=== PATIENT | female | born 1965 | race Caucasian/White ===

== ENCOUNTER 2019-03-01 21:07 | Inpatient (IN) | payer BC ==
[2019-03-02 00:07] VITALS: BMI 19.4
--- NOTE | 2019-03-02 07:12 | HP ---
CIWA Score Nausea/Vomitin (vomiting x 3) Muscle Tremors: 4-Moderate,w/Arms Extend Anxiety: 4-Mod. Anxious/Guarded Agitation: 4-Moderately Restless Paroxysmal Sweats: 2 Orientation: 0-Oriented Tacttile Disturbances: 0-None Auditory Disturbances: 0-None Visual Disturbances: 0-None Headache: 3-Moderate CIWA-Ar Total Score: 20 - Admission Criteria OASAS Guidelines: Admission for Medically Managed Detox: Requires at least one of the followin. CIWA greater than 12 2. Seizures within the past 24 hours 3. Delirium tremens within the past 24 hours 4. Hallucinations within the past 24 hours 5. Acute intervention needed for co occurring medical disorder 6. Acute intervention needed for co occurring psychiatric disorder 7. Severe withdrawal that cannot be handled at a lower level of care (continued vomiting, continued diarrhea, abnormal vital signs) requiring intravenous medication and/or fluids 8. Admission ROS [facility] - [facility] Chief Complaint: Alcohol withdrawal symptoms Allergies/Adverse Reactions: Allergies Allergy/AdvReac Type Severity Reaction Status Date / Time No Known Allergies Allergy Verified 03/01/19 23:57 History of Present Illness: 53 years old female with 3 years of excessive alcohol dependence is seeking admission to detox. This is her first admission to [facility] and first inpatient detoxification. She denies past medical history and report suicide attempt in 2007. Patient denies suicidal ideation at this time. Exam Limitations: No Limitations - Ebola screening Have you traveled outside of the country in the last 21 days: No (N) Have you had contact with anyone from an Ebola affected area: No Do you have a fever: No - Review of Systems Constitutional: Chills, Loss of Appetite, Malaise, Changes in sleep EENT: reports: No Symptoms Reported Respiratory: reports: No Symptoms reported Cardiac: reports: No Symptoms Reported GI: reports: No Symptoms Reported : reports: No Symptoms Reported Musculoskeletal: reports: No Symptoms Reported, Back Pain Integumentary: reports: Dryness, Flushing Neuro: reports: Headache, Tremors Hematology: reports: No Symptoms Reported Psychiatric: reports: Anxious Other Systems: Reviewed and Negative Patient History - Patient Medical History Hx Anemia: No Hx Asthma: No Hx Chronic Obstructive Pulmonary Disease (COPD): No Hx Cancer: No Hx Cardiac Disorders: No Hx Congestive Heart Failure: No Hx Hypertension: No Hx Hypercholesterolemia: No Hx Pacemaker: No HX Cerebrovascular Accident: No Hx Seizures: No Hx Dementia: No Hx Diabetes: No Hx Gastrointestinal Disorders: No Hx Liver Disease: No Hx Genitourinary Disorders: No Hx Sexually Transmitted Disorders: No Hx Renal Disease (ESRD): No Hx Thyroid Disease: No Hx Human Immunodeficiency Virus (HIV): No Hx Hepatitis C: No Hx Depression: No Hx Suicide Attempt: No Hx Bipolar Disorder: No Hx Schizophrenia: No - Patient Surgical History Past Surgical History: No - PPD History Previous Implant?: Yes Documented Results: Negative w/o proof Implanted On Prior R Admission?: No - Reproductive History Patient is a Female of Child Bearing Age (11 -55 yrs old): Yes LMP comment: Menopausal Patient : No - Smoking Cessation Smoking history: Unknown if ever smoked - Substance & Tx. History Hx Alcohol Use: Yes Hx Substance Use: No Substance Use Type: Tranquilizers Hx Substance Use Treatment: No - Substances abused Alcohol Substance route: Oral Frequency: Daily Amount used: 1 to 2 bottles of white wine Age of first use: 19 Date of last use: 03/01/19 Family Disease History - Family Disease History Family History: Denies Admission Physical Exam [facility] - Vital Signs Vital Signs: Vital Signs - 24 hr 03/01/19 23:56 Temperature 98.8 F Pulse Rate 102 H Respiratory 16 Rate Blood Pressure 139/94 - Physical General Appearance: Yes: Moderate Distress, Tremorous, Irritable, Anxious HEENTM: Yes: Within Normal Limits, Pale Conjunctivae R, Nasal Congestion Respiratory: Yes: Lungs Clear, Normal Breath Sounds, No Respiratory Distress Neck: Yes: Supple Breast: Yes: Breast Exam Deferred Cleared for Admission [facility] - Detox or Rehab [facility] Level of Care: Medically Managed Detox Regimen/Protocol: Librium Breathalyzer - Breathalyzer Breathalyzer: 0 Urine Drug Screen - Test Device Lot number: [id number] Expiration date: 10/28/20 - Control Is test valid?: Yes - Results Drug screen NEGATIVE: No Urine drug screen results: BZO-Benzodiazepines Inpatient Rehab Admission - Rehab Decision to Admit Inpatient rehab admission?: No
[2019-03-02] MEDS ORDERED: MAGNESIUM CITRATE 300 ML BOTTLE PO PRN (07:15)
[2019-03-02] MEDS ORDERED: ACETAMINOPHEN 325 MG TABLET (FP) PO PRN ×2 (07:15)
[2019-03-02] MEDS ORDERED: MELATONIN 5 MG TABLETS PO PRN (07:15)
[2019-03-02] MEDS ORDERED: IBUPROFEN 400 MG TABLET (FP) PO PRN (07:15)
[2019-03-02] MEDS ORDERED: MENTHOL/PHENOL 1 EACH UD MM PRN (07:15)
[2019-03-02] MEDS ORDERED: BISMUTH SUBSALICYLATE 262 MG/15 ML BTL PO PRN (07:15)
[2019-03-02] MEDS ORDERED: hydrOXYzine PAMOATE 25 MG CAPSULE (FP) PO PRN (07:15)
[2019-03-02] MEDS ORDERED: diazePAM 5 MG TABLET PO PRN (07:15)
[2019-03-02] MEDS ORDERED: MAGNESIUM HYDROX 2400MG/30ML ORAL SUSPENSION 30 ML CUP PO PRN (07:15)
[2019-03-02] MEDS ORDERED: MAG HYDROX/AL HYDROX/SIMETH 30 ML UNIT-DOSE CUP PO PRN (07:15)
[2019-03-02] MEDS ORDERED: METHOCARBAMOL 500 MG TABLET PO PRN (07:15)
[2019-03-02] MEDS: diazePAM 5 MG TABLET PO SCH ×3 (09:19→22:24)
[2019-03-02] MEDS: PRENATAL VITAMINS W/ FOLIC ACID TABLET (FP) PO SCH (09:26)
--- NOTE | 2019-03-02 14:18 | CONSULT ---
[facility] Psychiatric Consult - Data Date of interview: 03/02/19 Admission source: [facility] Identifying data: First admission to [facility] for this 53 y/o female self-referred for detoxification (alcohol). Interviewed at [address] [place] [id number]. Patient is , no children, domiciled and currently employed as a vetenarian. Substance Abuse History: Substances abused : Alcohol. Substance route: Oral. Frequency: Daily. Amount used: 1 to 2 bottles of white wine. Age of first use : 19. Date of last use: 03/01/19. Has maintained sobriety for 8 years. Relapse triggered by medical ilness of and his admission to assisted with severe physical disability. Medical History: Patient endorses good general health. History of two miscarriages. Psychiatric History: No reported history of psychiatric hospitalizations. However, Ms Moreno admits to chronic anxiety + dysphoria which has led to escalation of alcohol consumption and increasing difficulty to maintain focus on ADL's (activities of daily living). She is currently under the care of a private psychiatrist for medication management (escitalopram and naltrexone). Patient indicates tht she is not fully invested in OPD care. She aknowledges her skepticism about the therapeutic virtues of psychopharmacotherapy and, consequently, her adherence has been sub-optimal. Patient endorses one suicide attempt via overdose with pills (2007). Physical/Sexual Abuse/Trauma History: Denies history of abuse. Additional Comment: Urine drug screen results: BZO-Benzodiazepines. Noted. Mental Status Exam - Mental Status Exam Alert and Oriented to: Time, Place, Person Cognitive Function: Good Patient Appearance: Well Groomed Mood: Withdrawn, Hopeful Affect: Appropriate, Normal Range Patient Behavior: Fatigued, Appropriate (well-mannered), Cooperative Speech Pattern: Clear, Appropriate (articulate) Voice Loudness: Normal Thought Process: Intact, Goal Oriented Thought Disorder: Not Present Hallucinations: Denies Suicidal Ideation: Denies Homicidal Ideation: Denies Insight/Judgement: Fair Sleep: Fair Muscle strength/Tone: Normal Gait/Station: Normal Psychiatric Findings - Problem List ([place] 1, 2,3) (1) Alcohol dependence Current Visit: Yes Status: Chronic (2) Alcohol-induced mood disorder Current Visit: Yes Status: Suspected (3) Mood disorder Current Visit: Yes Status: Chronic - Initial Treatment Plan Initial Treatment Plan: Interviewed in the presence of medical students ( authorized by patient via verbal consent). Psychoeducation. Sleep hygiene. Support. Detoxification. Motivational counseling provided in session. Emphasis placed on benefits of MAT initiatives for relapse prevention + psychotherapy + compliance with medications (SSRI + naltrexone). Educated about the advantages of Vivitrol. Observation.
--- NOTE | 2019-03-02 16:49 | PN ---
S CIWA - CIWA Score Nausea/Vomitin-No Nausea/No Vomiting Muscle Tremors: 3 Anxiety: 2 Agitation: 2 Paroxysmal Sweats: No Perspiration Orientation: 0-Oriented Tacttile Disturbances: 2-Mild Itch/Numbness/Burn Auditory Disturbances: 0-None Visual Disturbances: 2-Mild Sensitivity Headache: 4-Moderately Severe CIWA-Ar Total Score: 15 S Progress Note (SOAP) Subjective: Anxious, H/A, Tremors. Objective: PATIENT A & O X 3, OBSERVED AMBULATING ON UNIT UNASSISTED. IN NO ACUTE DISTRESS. 03/02/19 16:50 Vital Signs Temperature 98.1 F 03/02/19 13:45 Pulse Rate 110 H 03/02/19 13:45 Respiratory Rate 16 03/02/19 13:45 Blood Pressure 119/80 03/02/19 13:45 O2 Sat by Pulse Oximetry (%) Laboratory Tests 03/02/19 04:45 POC Urine HCG, Qual Negative DETOX ADMISSION LAB RESULTS PENDING. 03/02/19 16:50 Assessment: 03/02/19 16:50 WITHDRAWAL SYMPTOMS. Plan: CONTINUE DETOX.
[2019-03-02] MEDS: THIAMINE HCL 100 MG TABLET (FP) PO SCH (22:24)
[2019-03-03] MEDS: diazePAM 5 MG TABLET PO SCH ×2 (06:32→19:12)
[2019-03-03] MEDS: PRENATAL VITAMINS W/ FOLIC ACID TABLET (FP) PO SCH (10:25)
--- NOTE | 2019-03-03 10:38 | EKG ---
Test Reason : Blood Pressure : / mmHG Vent. Rate : 103 BPM Atrial Rate : 103 BPM P-R Int : 144 ms QRS Dur : 068 ms QT Int : 352 ms P-R-T Axes : 079 043 041 degrees QTc Int : 461 ms SINUS TACHYCARDIA RIGHT ATRIAL ENLARGEMENT NONSPECIFIC T WAVE ABNORMALITY ABNORMAL ECG NO PREVIOUS ECGS AVAILABLE Confirmed by STARR JEREZ MD ([id number]) on 03/03/2019 10:37:35 AM Referred By: Confirmed By:STARR JEREZ MD
--- NOTE | 2019-03-03 13:04 | PN ---
S CIWA - CIWA Score Nausea/Vomitin-No Nausea/No Vomiting Muscle Tremors: 3 Anxiety: 3 Agitation: 2 Paroxysmal Sweats: 1-Minimal Palms Moist Orientation: 0-Oriented Tacttile Disturbances: 1-Very Mild Itch/Numbness Auditory Disturbances: 0-None Visual Disturbances: 0-None Headache: 1-Very Mild CIWA-Ar Total Score: 11 S Progress Note (SOAP) Subjective: feeling better today less anxious able to "concentrate to read a book" determines to remain sober to care for her Objective: 03/03/19 13:04 Vital Signs Temperature 96.8 F L 03/03/19 09:49 Pulse Rate 83 03/03/19 09:49 Respiratory Rate 18 03/03/19 09:49 Blood Pressure 133/79 03/03/19 09:49 O2 Sat by Pulse Oximetry (%) Laboratory Last Values POC Urine HCG, Qual Negative 03/02/19 04:45 03/03/19 13:04 lab pending Assessment: 03/03/19 13:04 alcohol withdrawal sx Plan: continue alcohol detox
[2019-03-03 13:09] LABS: HEMATOCRIT 40.9 % (32.4-45.2); HEMOGLOBIN 13.4 GM/dL (10.7-15.3); MCH 33.9 pg (25.7-33.7); MCHC 32.8 g/dl (32.0-36.0); MEAN CELL VOLUME 103.1 fl (80-96); MEAN PLT VOLUME 8.9 fl (7.5-11.1); RBC 3.97 M/mm3 (3.60-5.2); RDW 13.6 % (11.6-15.6); WHITE BLOOD COUNT 4.2 K/mm3 (4.0-10.0)
[2019-03-03 13:22] LABS: ALBUMIN 3.8 g/dl (3.4-5.0); BILIRUBIN,TOTAL 0.6 mg/dL (0.2-1); BLOOD UREA NITROGEN 13.1 mg/dL (7-18); CALCIUM 9.1 mg/dL (8.5-10.1); CREATININE 0.8 mg/dL (0.55-1.3); TOT PROT 6.6 g/dl (6.4-8.2)
[2019-03-03 13:38] LABS: PLATELET COUNT 233 K/MM3 (134-434)
[2019-03-03] MEDS: THIAMINE HCL 100 MG TABLET (FP) PO SCH (22:22)
[2019-03-04] MEDS ORDERED: diazePAM 5 MG TABLET PO ONE (06:00)
[2019-03-04 07:14] VITALS: BP 109/67; PULSE 82; TEMP 97
--- NOTE | 2019-03-04 18:05 | DS ---
[facility] Detox Discharge Summary Admission Date: 03/02/19 Discharge Date: 03/04/19 - History Present History: Alcohol Dependence Additional Comments: PATIENT RETURNING HOME. PATIENT WILL LIKELY ATTEND OUTPATIENT PROGRAM AT [facility] ([place], [place]) FOR AFTERCARE. PATIENT WAS DISCHARGED FORM DETOX UNIT IN STABLE MEDICAL CONDITION. Pertinent Past History: History Of Mood Disorder. - Physical Exam Results Vital Signs: Vital Signs Temperature 97 F L 03/04/19 07:13 Pulse Rate 82 03/04/19 07:13 Respiratory Rate 16 03/04/19 07:13 Blood Pressure 109/67 03/04/19 07:13 O2 Sat by Pulse Oximetry (%) Pertinent Admission Physical Exam Findings: WITHDRAWAL SYMPTOMS. Laboratory Tests 03/02/19 03/03/19 03/03/19 04:45 08:00 08:00 WBC 4.2 RBC 3.97 Hgb 13.4 Hct 40.9 MCV 103.1 H MCH 33.9 H MCHC 32.8 RDW 13.6 Plt Count 233 MPV 8.9 Sodium 142 Potassium 4.0 Chloride 104 Carbon Dioxide 34 H Anion Gap 4 L BUN 13.1 Creatinine 0.8 Est GFR (CKD-EPI)AfAm 96.87 Est GFR (CKD-EPI)NonAf 83.58 Random Glucose 89 Calcium 9.1 Total Bilirubin 0.6 AST 14 L ALT 30 Alkaline Phosphatase 71 Total Protein 6.6 Albumin 3.8 POC Urine HCG, Qual Negative RPR Titer 03/03/19 08:00 WBC RBC Hgb Hct MCV MCH MCHC RDW Plt Count MPV Sodium Potassium Chloride Carbon Dioxide Anion Gap BUN Creatinine Est GFR (CKD-EPI)AfAm Est GFR (CKD-EPI)NonAf Random Glucose Calcium Total Bilirubin AST ALT Alkaline Phosphatase Total Protein Albumin POC Urine HCG, Qual RPR Titer Nonreactive LABS NOTED. - Treatment Hospital Course: Detox Protocol Followed, Detoxed Safely, Responded well, Discharged Condition Good Patient has Accepted a Rehab Referral to: PT WILL LIKELY ATTEND [facility] OUTPATIENT PROGRAM. - Diagnosis (1) Alcohol dependence Status: Acute Qualifiers: Substance use status: in withdrawal Complication of substance-induced condition: uncomplicated Qualified Code(s): F10.230 - Alcohol dependence with withdrawal, uncomplicated (2) Mood disorder Status: Chronic (3) Alcohol-induced mood disorder Status: Suspected - AMA Did Patient Leave Against Medical Advice: No
== END 2019-03-04 08:52 | disposition home or self-care (01) | DRG 897 ==
LOC: YASAS 21:07 → Y3N 03-02 08:10
PROVIDERS: ADMIT Surgery; ATTEND Surgery
PROC: HZ2ZZZZ Detoxification Services for Substance Abuse Treatment (ICD-10-PCS; principal; 2019-03-02)
DX: F10.230 Alcohol dependence with withdrawal, uncomplicated (principal); F13.20 Sedative, hypnotic or anxiolytic dependence, uncomplicated; F10.24 Alcohol dependence with alcohol-induced mood disorder; F31.9 Bipolar disorder, unspecified; F41.9 Anxiety disorder, unspecified; Z91.5 Personal history of self-harm
CPT/HCPCS: 36415; 80053; 81025; 85027; 86593; 93005; 93010